=== PATIENT | female | born 1975 | race African-American/Black ===

== ENCOUNTER 2018-05-08 13:30 | Emergency (ER) | payer SELFPAY ==
[2018-05-08] MEDS ORDERED: Morphine 4 MG/ML VIAL ONE (14:19)
[2018-05-08 15:04] LABS: Bilirubin Negative (Negative); Blood, Urine Moderate (Negative); Clarity Clear (Clear); Glucose, Urine (Dipstick) Negative (Negative); Leukocyte Trace (Negative); Nitrite Negative (Negative); Protein, Urine (Dipstick) Negative (Neg-Trace); Specific Gravity, Urine 1.025 (1.005-1.030)
[2018-05-08 15:07] LABS: Bacteria/HPF Rare-Few HPF (None Seen); Hyaline Casts/LPF NONE SEEN LPF (0-3 Hyaline); Pregnancy Test - Urine (BHCG) Negative (Negative); Pregu Control Background? CLEAR/WHITE (CLR/WHITE); Pregu Control Bar Appear? YES (CONTROL BAR); RBC/HPF 0-3 HPF (0-3); Specific Gravity 1.025 (1.002-1.036); WBC/HPF 0-3 HPF (0-3)
== END 2018-05-08 15:35 | disposition home or self-care (01) ==
LOC: ERS 13:30
DX: N39.0 Urinary tract infection, site not specified (principal); M54.6 Pain in thoracic spine; I10 Essential (primary) hypertension; F17.210 Nicotine dependence, cigarettes, uncomplicated
CPT/HCPCS: 81003; 81015; 81025; 96372; J2270